=== PATIENT | female | born 1960 | race Caucasian/White ===

== ENCOUNTER 2019-10-02 11:19 | Emergency (ER) | payer OTHER, SELFPAY ==
[2019-10-02 11:20] VITALS: BP 120/73; PULSE 89; RESP 16; TEMP 36.1; O2SAT 95; BMI 28.3
[2019-10-02] MEDS: Oxymetazoline 0.05% 1 SPRAY SPRAY.BTL 2 SPRAY NASAL (12:14)
--- NOTE | 2019-10-02 12:19 | ED.DCSUM_ITS ---
History of Present Illness Chief Complaint: Nosebleed Onset: Today Current Severity: Mild Maximum Severity: Moderate Narrative: She presents with nosebleed from the right nare. She was at her [employer] office this morning when bleeding started. She states she does tend to get nosebleeds in the winter when the air is dry. She denies any recent trauma or cold symptoms. She does not have a history of high blood pressure. Past Medical History - Allergies and Home Meds Allergies/Adverse Reactions: Allergies Penicillins [PCN] Allergy (Verified 10/02/19 11:22) Hives Primary Care Physician: Santi Narayan MD [STAFF PHYSICIAN] - As Needed Wilbert Simpson MD [Primary Care Provider] - Past Medical History: None Smoking Status: Never smoker Review of Systems General: Denies: Chills, Fever Eyes: Denies: Visual changes - bilaterally ENT: Reports: - - Epistaxis. Denies: Bilateral ear pain Cardiovascular: Denies: Chest pain Respiratory: Denies: Dyspnea, Cough Gastrointestinal: Denies: Abdominal pain, Nausea, Vomiting, Diarrhea Skin: Denies: Rash Neurological: Denies: Headache Hematologic: Denies: Easy bruising, Easy bleeding Allergy: Denies: Uticaria Physical Exam Vital Signs/Narrative: Vital Signs Temp Pulse Resp BP Pulse Ox 10/02/19 11:20 97 F L 89 16 120/73 95 Inital Vital Signs reviewed: Yes General: Well nourished, Well developed Head: Normocephalic ENT: Moist mucous membranes Neck: Supple Cardiovascular: Regular rate, Regular rhythm Respiratory: No distress, CTA bilaterally Abdomen: Soft, Nontender Extremities: Nontender Skin: Normal color Neurological: Alert, Oriented x3 Psychological: Normal affect Diagnostic/Tx/Re-eval - Medical Decision Making Nasal clamp was placed on patient arrival. When I removed this to place packing bleeding had stopped. Nares appear clear bilaterally. Afrin was placed in the right nare. She is observed for quite some time with no further bleeding. She got up and ambulated in the hallways without any recurrent bleeding. Prior to discharge patient states that she had sneezed and feels like she needs to blow her nose. She did this was in the room and she is had no further bleeding. There is no blood noted in the nares on repeat exam. Patient is given aspirin and a nasal clamp to use for home if need be. She is given phone numbers for ENT. She was advised to use Vaseline to line her nasal passages to help with moisture. ED Disposition - Plan for ED Patient: Disposition: Home or Assisted Living Diagnosis: Epistaxis Instructions: Nosebleed Referrals: Wilbert Simpson MD [Primary Care Provider] - Santi Narayan MD [STAFF PHYSICIAN] - As Needed
== END 2019-10-02 13:30 | disposition home or self-care (01) ==
PROVIDERS: Emergency Provider Emergency Medicine; Family Provider Internal Medicine; PCP Internal Medicine
DX: R04.0 Epistaxis (principal)
CPT/HCPCS: 99282